=== PATIENT | female | born 1985 | race Caucasian/White ===

== ENCOUNTER 2020-04-03 02:03 | Emergency (ER) | payer OTHER | END 2020-04-03 06:45 | disposition home or self-care (01) | LOC: M ED 02:03 | DX: S63.502A Unspecified sprain of left wrist, initial encounter (principal); W01.0XXA Fall on same level from slipping, tripping and stumbling without subsequent striking against object, initial encounter; Y92.018 Other place in single-family (private) house as the place of occurrence of the external cause; Z98.84 Bariatric surgery status; Z88.1 Allergy status to other antibiotic agents ==

== ENCOUNTER → 2020-09-07 | Outpatient (CLI) | payer SELFPAY | LOC: M LABSMTC 10:38 | PROVIDERS: ATTEND Pediatrics | DX: Z20.828 Contact with and (suspected) exposure to other viral communicable diseases (principal) ==

== ENCOUNTER 2022-04-24 17:07 | Inpatient (IN) | payer OTHER ==
[~2022-04-24] VITALS: Ht 165.1 cm; Wt 100.0 kg
[2022-04-24] MEDS ORDERED: ACETAMINOPHEN 500 MG TAB PO ONE (17:50)
[2022-04-24 18:09] LABS: BASO % 0.5 % (0.0-1.0); EOS % 0.7 % (0.0-3.0); HEMOGLOBIN 9.1 g/dl (12.0-15.5); LYMPH # 0.7 10^3/uL (1.5-5.0); LYMPH % 15.1 % (24.0-44.0); MEAN CORPUSCULAR HEMOGLOBIN 19.1 pg (27.0-33.0); MEAN CORPUSCULAR HGB CONC 28.4 g/dl (32.0-36.5); MEAN CORPUSCULAR VOLUME 67.1 fl (80.0-96.0); MONO # 0.6 10^3/uL (0.0-0.8); MONO % 13.3 % (2.0-8.0); NEUTROPHILS # 3.1 10^3/uL (1.5-8.5); NEUTROPHILS % 69.9 % (36.0-66.0); PLATELET COUNT, AUTOMATED 263 10^3/uL (150-450); RED BLOOD COUNT 4.77 10^6/uL (4.00-5.40); WHITE BLOOD COUNT 4.4 10^3/uL (4.0-10.0)
[2022-04-24 18:31] LABS: INR 1.05; PROTHROMBIN TIME 14.1 SECONDS (12.7-14.5)
[2022-04-24 18:32] LABS: PARTIAL THROMBOPLASTIN TIME 30.6 SECONDS (25.9-37.0)
[2022-04-24 18:35] LABS: D-DIMER QUANT 755.93 ng/ml (<500)
[2022-04-24 18:39] LABS: ALBUMIN 3.5 GM/DL (3.2-5.2); ALT/SGPT 28 U/L (12-78); BILIRUBIN,TOTAL 0.3 MG/DL (0.2-1.0); BLOOD UREA NITROGEN 8 MG/DL (7-18); C REACTIVE PROTEIN QUANTITATIV 0.44 MG/DL (0.00-0.30); CALCIUM LEVEL 8.6 MG/DL (8.5-10.1); CARBON DIOXIDE LEVEL 25 MEQ/L (21-32); CHLORIDE LEVEL 108 MEQ/L (98-107); CREATININE FOR GFR 0.72 MG/DL (0.55-1.30); FERRITIN 5 NG/ML (8-252); GLOMERULAR FILTRATION RATE > 60.0 (>60); GLUCOSE, FASTING 97 MG/DL (70-100); LDH LACTATE DEHYDROGENASE 141 U/L (84-246); MAGNESIUM LEVEL 1.8 MG/DL (1.8-2.4); SODIUM LEVEL 138 MEQ/L (136-145); TOTAL PROTEIN 7.2 GM/DL (6.4-8.2)
[2022-04-24] MEDS ORDERED: ISOVUE-370 76% 100ML VIAL As Ordered ONE (19:08)
[2022-04-24] MEDS ORDERED: IBUPROFEN 600MG TAB PO ONE (23:10)
[2022-04-24] MEDS ORDERED: TYLE650T38 PO (23:16)
[2022-04-24] MEDS ORDERED: HOME MED LIST COMPLETE! XX SCH (23:20)
[2022-04-25] VITALS (10 sets, daily range): BP systolic 89–107; BP diastolic 51–73; O2SAT 93–97
[2022-04-25] MEDS ORDERED: cefTRIAXone SOD 1 GM in D5W MINI-BAG PLUS 50 ML IV SCH ×2
[2022-04-25] MEDS ORDERED: AZITHROMYCIN INJ 500 MG, VIAL MATE ADAPTER 1 EACH in NS 250 ML IV SCH (01:00)
[2022-04-25] MEDS ORDERED: ACETAMINOPHEN TAB 650MG DOSE (2X325MG) PO PRN (01:10)
[2022-04-25] MEDS ORDERED: REMDESIVIR 200 MG in NS 250 ML IV ONE (04:00)
[2022-04-25] MEDS ORDERED: SODIUM CHLORIDE 0.9% INJ 10 ML SYR IV ONE (06:00)
[2022-04-25 08:23] LABS: ALBUMIN 3.2 GM/DL (3.2-5.2); BILIRUBIN,DIRECT 0.1 MG/DL (0.0-0.2); BILIRUBIN,TOTAL 0.2 MG/DL (0.2-1.0); TOTAL PROTEIN 6.3 GM/DL (6.4-8.2)
[2022-04-25] MEDS: ENOXAPARIN 60MG/0.6ML SYRINGE (J1650 PER 10MG) SC SCH ×2 (10:12→21:37)
[2022-04-25] MEDS: dexameTHASONE 4 MG/ML 1ML VIAL (J1100 PER 1MG) IV SCH (10:12)
[2022-04-26 00:55] VITALS: O2SAT 94
[2022-04-26] MEDS ORDERED: REMDESIVIR 100 MG in NS 250 ML IV SCH (04:00)
[2022-04-26] MEDS ORDERED: SODIUM CHLORIDE 0.9% INJ 10 ML SYR IV SCH (05:00)
[2022-04-26 06:00] VITALS: BP 97/55
[2022-04-26 06:17] LABS: HEMATOCRIT 30.8 % (36.0-47.0); HEMOGLOBIN 8.7 g/dl (12.0-15.5); MEAN CORPUSCULAR HGB CONC 28.2 g/dl (32.0-36.5); MEAN CORPUSCULAR VOLUME 67.1 fl (80.0-96.0); PLATELET COUNT, AUTOMATED 212 10^3/uL (150-450); RED BLOOD COUNT 4.59 10^6/uL (4.00-5.40); WHITE BLOOD COUNT 6.6 10^3/uL (4.0-10.0)
[2022-04-26 07:01] LABS: BLOOD UREA NITROGEN 9 MG/DL (7-18); CALCIUM LEVEL 8.4 MG/DL (8.5-10.1); CARBON DIOXIDE LEVEL 24 MEQ/L (21-32); CHLORIDE LEVEL 110 MEQ/L (98-107); CREATININE FOR GFR 0.59 MG/DL (0.55-1.30); GLOMERULAR FILTRATION RATE > 60.0 (>60); GLUCOSE, FASTING 95 MG/DL (70-100); POTASSIUM SERUM 3.6 MEQ/L (3.5-5.1); SODIUM LEVEL 140 MEQ/L (136-145)
[2022-04-26] MEDS: ENOXAPARIN 60MG/0.6ML SYRINGE (J1650 PER 10MG) SC SCH (09:16)
[2022-04-26] MEDS: dexameTHASONE 4 MG/ML 1ML VIAL (J1100 PER 1MG) IV SCH (09:16)
== END 2022-04-26 12:35 | disposition home or self-care (01) | DRG 179 ==
LOC: M ED 17:07 → EDBD 17:07 → M ED INP 23:45 → M MS5PR 04-25 01:19
PROVIDERS: ADMIT Family Medicine; ATTEND Family Medicine
PROC: 3E0333Z Introduction of Anti-inflammatory into Peripheral Vein, Percutaneous Approach (ICD-10-PCS; principal; 2022-04-24)
PROC: XW033E5 Introduction of Remdesivir Anti-infective into Peripheral Vein, Percutaneous Approach, New Technology Group 5 (ICD-10-PCS; 2022-04-26)
DX: U07.1 COVID-19 (principal); R09.02 Hypoxemia; Z88.1 Allergy status to other antibiotic agents; E66.9 Obesity, unspecified; Z98.84 Bariatric surgery status; Z90.49 Acquired absence of other specified parts of digestive tract; F17.210 Nicotine dependence, cigarettes, uncomplicated; D50.9 Iron deficiency anemia, unspecified; Z68.36 Body mass index [BMI] 36.0-36.9, adult; R51.9 Headache, unspecified